=== PATIENT | female | born 1955 | race Caucasian/White ===

== ENCOUNTER 2017-10-06 19:27 | Observation (INO) | payer OTHER, BC ==
[2017-10-07] MEDS ORDERED: ZOFRAN INJ 4 MG VIAL IVP ONE (00:27)
--- NOTE | 2017-10-07 00:27 | DR.GENAD ---
HPI - PCP Primary Care Physician: NFD - Complaint/Symptoms Chief Complaint Doctors Comments: Patient is complaining of nausea, vomiting and diarrhea for the past 24hours with blood in her bowel movement with LLQ pain. brandi states the pain is 7 of 10. She denies chest pain , SOB, cold or cough or hematuria. states she is a patient of Dr. Newman. states she had a colonoscope last year and they told her she had a diverticulum. States she has been seeing blood in her stool everything she goes to the bathroom. She denies any recent trauma. Chief Complaint:: PT HAS BEEN N/V/D FOR APPROX 18HRS.; BLEEDING FROM RECTUM; BRIGHT RED BLOOD IN TOILET; UNSURE OF FEVER - Nurses notes reviewed Nurses Notes Review: Yes - Source History Provided: Patient - Mode of Arrival Mode of Arrival: Ambulatory - Timing Onset of Chief Complaint: 10/05/17 Came on: Gradually - Duration Duration: Constant How lon Duration: Days - Location Location: LLQ pain - Severity Severity: Moderate - Modifying Factors Worsens:: nothing Improves:: nothing PMH - PMH Past Medical History: Yes Past Medical History: Arthritis, Hypertension Past Medical History Comment: DDD; OSTEOARTHRITIS; HEART MURMUR Past Surgical History: Yes Past Surgical History Comment: TUBILIGATION; SPACERS PLACED IN C-SPINE; BILATERAL KNEE REPLACEMENT - Family History History of Family Medical Conditions: No - Social History Alcohol Use: None Do you use any recreational Drugs:: No Lives With: Family Lives Where: Home - infectious screening In the last 2 months have you had wt loss of >10#?: NO Have you had fever, night sweats or hemotysis?: No Have you traveled outside the country in the last 6 months?: No Isolation: Standard ROS - Review of Systems Constitutional: No Symptoms Reported, Weakness, Loss of Appetite. negative: See HPI, Chills, Diaphoresis, Fever, Malaise, Irritable, Fatigue, Other Eyes: No Symptoms Reported. negative: See HPI, Eye Pain, Blurred Vision, Tearing, Discharge, Photophobia, Diplopia, Other ENTM: No Symptoms Reported Respiratoy: No Symptoms Reported. negative: See HPI, Productive Cough, Non- Productive Cough, Moist Cough, Dry Cough, Hacking Cough, Barking Cough, Brassy Cough, Orthopnea, Short of Breath, Stridor, Wheezing, Hemoptysis, Other Cardiovascular: No Symptoms Reported Gastrointestinal/Abdominal: No Symptoms Reported, Abdominal Pain, Diarrhea, Nausea Genitourinary: No Symptoms Reported. negative: See HPI, Discharge, Dysuria, Frequency, Hematuria, Pain, Bleeding, Other Neurological: No Symptoms Reported Musculoskeletal: No Symptoms Reported Integumentary: No Symptoms Reported. negative: See HPI, Change in Color, Change in Hair/Nails, Dryness, Lesions, Lumps, Rash, Itching, Wound, Bruises, Juandice, Other Hematologic/Lymphatic: No Symptoms Reported. negative: See HPI, Anemia, Blood Clots, Easy Bleeding, Easy Bruising, Swollen Glands, Lymphadenopathy, Other Endocrine: No Symptoms Reported Psychiatric: No Symptoms Reported. negative: See HPI, Anxiety, Depression, Hallucinations, Excessive crying, Suicidal, Other PE - Vital Signs Vitals: Temperature 98.9 F Pulse Rate [Right Brachial] 93 Pulse Rate 89 Respiratory Rate 20 Blood Pressure [Right Arm] 129/68 Blood Pressure 146/70 O2 Sat by Pulse Oximetry 99 - General Limitations: No Limitations General Appearance: Alert, In Distress (moderate) - Head Head Exam: Normal Inspection, Atraumatic, Normocephalic - Eyes Eye exam: Normal Appearance, PERRL, EOMI. negative: Scleral Icterus, Conjunctival Injection, Nystagmus, Miosis, Mydrasis, Periorbital Swelling, Periorbital Tenderness, Other - ENT ENT Exam: Normal Exam, Normal Oropharynx, Normal External Ear Exam, Mucous Membranes Moist, TM's Normal Bilaterally External Ear Exam: Normal External Inspection TM/Canal Exam: Bilateral Normal Nose Exam: Normal Nose Exam Mouth Exam: Normal Inspection Throat Exam: Normal Inspection - Neck Neck Exam: Normal Inspection, Full ROM, Trachea Midline. negative: Tenderness, Meningismus, Lymphadenopathy, Thyromegaly, Other - Chest Chest Inspection: Normal Inspection, Symmetric Chest Wall Rise - Respiratory Respiratory Exam: Normal Lung Sounds Bilat Respiratory Exam: Bilateral Clear to Auscultation - Cardiovascular Cardiovascular Exam: Regular Rate, Normal Rhythm, Normal Heart Sounds. negative : Bradycardia, Tachycardia, Irregular Rhythm, Systolic Murmur, Diastolic Murmur , Rubs, Gallop, Clicks, JVD, +S1, +S2, +S3, +S4, Other - Abdominal Exam Abdominal Exam: Normal Inspection, Normal Bowel Sounds, Soft, Tenderness (LLQ tenderness), Hyperactive Bowel Sounds Abdominal Tenderness: LLQ, Diffuse, Moderate - Extremities Extremities Exam: Normal Inspection, Full ROM, Normal Capillary Refill. negative: Tenderness, Edema, Joint Swelling, Calf Tenderness, Other - Back Back Exam: Normal Inspection, Full ROM. negative: Tenderness, (R) CVA Tenderness, (L) CVA Tenderness, Muscle Spasm, Paraspinal Tenderness, Vertebral Tenderness, Rashes, (R) Sciatic Notch Tenderness, (L) Sciatic Notch Tendern, (R ) Straight Leg Raise, (L) Straight Leg Raise, Other - Neurologic Neurological Exam: Alert, Oriented X3, CN II-XII Intact, Normal Gait, Reflexes Normal - Psychiatric Psychiatric Exam: Normal Affect, Normal Mood - Skin Skin Exam: Warm, Dry, Intact, Normal Color Course - Consultation Called: 02:25 Call Returned: 02:36 (Dr. Petty called to admit patient) - Education/Counseling Education/Counseling: Patient, Family Educated On: Treatment, Diagnosis, Needs for Follow Up ROR - Labs Reviewed Laboratory Results Reviewed?: Yes (All labs and x-ray results reviewed and discussed with patient and her son) Result Diagrams: 10/07/17 00:40 10/07/17 00:40 Laboratory: WBC 14.2 X10^3/uL (3.6-10.0) H 10/07/17 00:40 RBC 4.59 X10^6/uL (3.5-5.4) 10/07/17 00:40 Hgb 14.1 g/dL (12.0-16.0) 10/07/17 00:40 Hct 40.6 % (36.0-47.0) 10/07/17 00:40 MCV 88.4 fL (80.0-100.0) 10/07/17 00:40 MCH 30.7 pg (27.0-34.0) 10/07/17 00:40 MCHC 34.8 g/dL (33.0-35.0) 10/07/17 00:40 RDW 13.5 % (11.6-16.5) 10/07/17 00:40 Plt Count 175 X10^3/uL (150.0-450.0) 10/07/17 00:40 MPV 8.9 fL (7.4-11.0) 10/07/17 00:40 Neut % 74.2 % (42.0-75.0) 10/07/17 00:40 Lymph % 16.0 % (21.0-51.0) L 10/07/17 00:40 [place] % 8.1 % (0.0-13.0) 10/07/17 00:40 Eos % 1.0 % (0.9-2.9) 10/07/17 00:40 Baso % 0.7 % (0.2-1.0) 10/07/17 00:40 Neut # 10.5 x10^3/uL (2.2-4.8) H 10/07/17 00:40 Lymph # 2.3 X10^3/uL (1.3-2.9) 10/07/17 00:40 [place] # 1.2 x10^3/uL (0.3-0.8) H 10/07/17 00:40 Eos # 0.1 x10^3/uL (0.0-0.2) 10/07/17 00:40 Baso # 0.1 X10^3/uL (0.0-0.1) 10/07/17 00:40 Absolute Nucleated RBC 0.2 /100WBC 10/07/17 00:40 Sodium 142 mmol/L (136-145) 10/07/17 00:40 Corrected Sodium TNP 10/07/17 00:40 Potassium 4.0 mmol/L (3.5-5.1) 10/07/17 00:40 Chloride 102 mmol/L (98-107) 10/07/17 00:40 Carbon Dioxide 30.6 mmol/L (21-32) 10/07/17 00:40 BUN 16 mg/dL (7-18) 10/07/17 00:40 Creatinine 0.69 mg/dL (0.55-1.02) 10/07/17 00:40 Est GFR (MDRD) Af Amer > 60 (>60) 10/07/17 00:40 Est GFR (MDRD) Non-Af > 60 (>60) 10/07/17 00:40 Glucose 104 mg/dL (65-99) H 10/07/17 00:40 Calcium 8.8 mg/dL (8.5-10.1) 10/07/17 00:40 Corrected Calcium TNP 10/07/17 00:40 Total Bilirubin 0.70 mg/dL (0.2-1.0) 10/07/17 00:40 AST 23 Units/L (15-37) 10/07/17 00:40 ALT 31 Units/L (12-78) 10/07/17 00:40 Alkaline Phosphatase 70 Units/L (46-116) 10/07/17 00:40 Total Protein 7.4 g/dL (6.4-8.2) 10/07/17 00:40 Albumin 3.6 g/dL (3.4-5.0) 10/07/17 00:40 Globulin 3.8 g/dL (2.5-4.5) 10/07/17 00:40 Albumin/Globulin Ratio 0.9 Ratio (1.1-2.1) L 10/07/17 00:40 Amylase 25 Units/L (25-115) 10/07/17 00:40 Lipase 77 Units/L (73-393) 10/07/17 00:40 Stool Description 5g. bloody/liquid 10/06/17 23:07 Stl Occult Blood (IFOB) Positive (NEGATIVE) A 10/06/17 23:07 - XRAY XRAY Interpreted by: Radiologist (CT abdomen and pelvis: scute inflammatory change in the left colon and the splenic flexure compatible with colitis. Gallstones.) - Diagnosis Discharge Problem: Acute GI bleeding, Acute colitis, Gastroenteritis, Colonic diverticulum, Abdominal pain Cholelithiasis Qualifiers: Cholangitis acuity: unspecified acuity Biliary obstruction: without biliary obstruction - Discharge Plan Disposition: ADMITTED INPATIENT Condition: Stable - Follow ups/Referrals Follow ups/Referrals: NFD,None [Primary Care Provider] - 3 days - Instructions
[2017-10-07] MEDS ORDERED: TORADOL 30 MG VIAL IVP STA (00:33)
[2017-10-07] MEDS ORDERED: ZOFRAN INJ 4 MG VIAL ONE (00:33)
[2017-10-07] MEDS: NS 1000 ML 1,000 ML IV SCH ×2 (00:47→17:33)
[2017-10-07] MEDS ORDERED: TORADOL 30 MG VIAL ONE (00:48)
[2017-10-07] MEDS ORDERED: NS 1000 ML 1,000 ML ONE (00:48)
[2017-10-07 00:58] LABS: BASOPHILS # (AUTO) 0.1 X10^3/uL (0.0-0.1); BASOPHILS % (AUTO) 0.7 % (0.2-1.0); EOSINOPHILS # (AUTO) 0.1 x10^3/uL (0.0-0.2); HEMATOCRIT 40.6 % (36.0-47.0); HEMOGLOBIN 14.1 g/dL (12.0-16.0); LYMPHOCYTES # (AUTO) 2.3 X10^3/uL (1.3-2.9); MEAN CORPUSCULAR HEMOGLOBIN 30.7 pg (27.0-34.0); MEAN CORPUSCULAR HGB CONC 34.8 g/dL (33.0-35.0); MEAN CORPUSCULAR VOLUME 88.4 fL (80.0-100.0); MEAN PLATELET VOLUME 8.9 fL (7.4-11.0); MONOCYTES # (AUTO) 1.2 x10^3/uL (0.3-0.8); MONOCYTES % (AUTO) 8.1 % (0.0-13.0); NEUTROPHILS # (AUTO) 10.5 x10^3/uL (2.2-4.8); NEUTROPHILS % (AUTO) 74.2 % (42.0-75.0); PLATELET COUNT 175 X10^3/uL (150.0-450.0); RED BLOOD COUNT 4.59 X10^6/uL (3.5-5.4); RED CELL DISTRIBUTION WIDTH 13.5 % (11.6-16.5); WHITE BLOOD COUNT 14.2 X10^3/uL (3.6-10.0)
[2017-10-07 01:22] LABS: ALANINE AMINOTRANSFERASE 31 Units/L (12-78); ALBUMIN 3.6 g/dL (3.4-5.0); ALKALINE PHOSPHATASE 70 Units/L (46-116); AMYLASE 25 Units/L (25-115); ASPARTATE AMINO TRANSFERASE 23 Units/L (15-37); BLOOD UREA NITROGEN 16 mg/dL (7-18); CALCIUM 8.8 mg/dL (8.5-10.1); CARBON DIOXIDE 30.6 mmol/L (21-32); CHLORIDE 102 mmol/L (98-107); CREATININE 0.69 mg/dL (0.55-1.02); LIPASE 77 Units/L (73-393); SODIUM 142 mmol/L (136-145); TOTAL PROTEIN 7.4 g/dL (6.4-8.2); eGFR BLACK RACES > 60 (>60); eGFR NON BLACK RACES > 60 (>60)
[2017-10-07] MEDS ORDERED: LEVAQUIN PREMIX IV 500 MG 500 MG/100 ML BAG IV ONE ×2 (01:42→01:49)
--- NOTE | 2017-10-07 01:42 | CT ---
CT abdomen and pelvis without contrast Indication: Rectal bleeding and vomiting Technique: Helical images through the abdomen pelvis without contrast. Coronal and sagittal reformats provided. Findings: Limited images through the lower chest show no acute abnormality. Review of bone windows sh ows no destructive osseous lesion. Abdomen: The liver is fatty. Gallstones are seen within the gallbladder. The pancreas, adrenal glands , kidneys and spleen show no acute abnormality. The stomach and small bowel are normal. Appendix is n ormal. Right colon is normal. There is wall thickening and stranding around the splenic flexure, left transverse colon and descending colon see axial images 23-40. Few noninflamed distal descending colo n diverticulum noted. Pelvis: The urinary bladder and rectum are normal. Uterus and adnexa are normal Pressure: 1. Acute inflammatory change in the left colon at the splenic flexure as described above. This is com patible with colitis. Etiology could be inflammatory or infectious. Ischemia cannot be completely exc luded. Close clinical and imaging follow-up recommended. Surgical consultation recommended. 2. Gallstones, and other findings as above. THE AVAILABILITY OF THE REPORT AND FINDINGS WERE COMMUNICATED TO Dr. Vargas by Dr. Turpin on 10/07/2017 Time called 1:42 a.m. Reported By:
[2017-10-07] MEDS ORDERED: PHENERGAN INJ 25 MG IVP PRN (02:42)
[2017-10-07] MEDS ORDERED: PEPCID 20 MG IV PREMIX* 20 MG/50 ML BAG IV PRN (02:42)
[2017-10-07] MEDS ORDERED: MORPHINE SULFATE INJ 2 MG INJ IVP PRN (02:42)
[2017-10-07] MEDS ORDERED: ZOFRAN INJ 4 MG VIAL IVP PRN (02:42)
[2017-10-07 04:50] VITALS: BMI 27.8
[2017-10-07] MEDS: LEVAQUIN PREMIX IV 500 MG 500 MG/100 ML BAG IV SCH ×2 (05:17→10:23)
[2017-10-07] MEDS: NS 1/2 + KCL 20 MEQ/L 1,000 ML IV SCH ×2 (05:17→17:34)
[2017-10-07] MEDS: FLAGYL IV PREMIX 500 MG BAG 500 MG/100 ML BAG IV SCH ×4 (05:24→20:48)
[2017-10-07 08:28] LABS: BASOPHILS # (AUTO) 0.1 X10^3/uL (0.0-0.1); BASOPHILS % (AUTO) 0.9 % (0.2-1.0); EOSINOPHILS # (AUTO) 0.2 x10^3/uL (0.0-0.2); EOSINOPHILS % (AUTO) 1.8 % (0.9-2.9); HEMATOCRIT 38.2 % (36.0-47.0); HEMOGLOBIN 13.2 g/dL (12.0-16.0); LYMPHOCYTES # (AUTO) 2.6 X10^3/uL (1.3-2.9); LYMPHOCYTES % (AUTO) 21.6 % (21.0-51.0); MEAN CORPUSCULAR HEMOGLOBIN 30.6 pg (27.0-34.0); MEAN CORPUSCULAR HGB CONC 34.6 g/dL (33.0-35.0); MEAN CORPUSCULAR VOLUME 88.4 fL (80.0-100.0); MEAN PLATELET VOLUME 9.1 fL (7.4-11.0); MONOCYTES # (AUTO) 1.1 x10^3/uL (0.3-0.8); MONOCYTES % (AUTO) 9.5 % (0.0-13.0); NEUTROPHILS # (AUTO) 7.9 x10^3/uL (2.2-4.8); NEUTROPHILS % (AUTO) 66.2 % (42.0-75.0); PLATELET COUNT 157 X10^3/uL (150.0-450.0); RED BLOOD COUNT 4.32 X10^6/uL (3.5-5.4); RED CELL DISTRIBUTION WIDTH 13.7 % (11.6-16.5); WHITE BLOOD COUNT 11.9 X10^3/uL (3.6-10.0)
[2017-10-07 08:34] LABS: ALANINE AMINOTRANSFERASE 27 Units/L (12-78); ALKALINE PHOSPHATASE 63 Units/L (46-116); ASPARTATE AMINO TRANSFERASE 20 Units/L (15-37); BLOOD UREA NITROGEN 16 mg/dL (7-18); CALCIUM 8.6 mg/dL (8.5-10.1); CARBON DIOXIDE 30.3 mmol/L (21-32); CHLORIDE 103 mmol/L (98-107); COR CA(FOR HYPOALB) 9.4 mg/dL (8.5-10.1); CREATININE 0.69 mg/dL (0.55-1.02); SODIUM 142 mmol/L (136-145); TOTAL PROTEIN 6.8 g/dL (6.4-8.2); eGFR BLACK RACES > 60 (>60); eGFR NON BLACK RACES > 60 (>60)
--- NOTE | 2017-10-07 09:39 | DR.H&P ---
H&P - History & Physical for Day of: H&P Date: 10/07/17 - Chief Complaint Chief Complaint: abdominal pain, n/v/d, blood in stool - Allergies Allergies/Adverse Reactions: Allergies Allergy/AdvReac Type Severity Reaction Status Date / Time penicillin G Allergy Verified 10/06/17 19:57 Penicillins Allergy Verified 10/06/17 19:57 - History of Present Illness History of Present Illness: 62 WHITE FEMALE ER ADMIT WITH CO OF ABDOMINAL PAIN, LOWER WITH CRAMPS. PT STATES SHE HAS HAD N/V/D AND STARTING ON SUNDAY WITH BLOOD IN STOOL. PT STATES SHE HAS HAD NO FEVER, SOME CHILLS. NAUSEA IMPROVING. PT HAD SCREENING COLONOSCOPY 1 YEAR AGO WITHOUT ABNORMAL FINDINGS. PT HAS PMH OF RA, CURRENTLY ON METHOTREXATE. PT ADMITTED FOR TREATMENT AND FUTHER EVALUATION OF COLITIS - Past Medical History Past Medical History: Arthritis, Hypertension - Past Surgical History Surgical History: Joint Replacement, Neurosurgery, Ortho Surgery, Other - Family History Family Medical History: Cancer, [place], Coronary Artery Disease, Heart Failure, Hypertension - Social History Does patient currently use any type of tobacco product: No Have you used tobacco products in the last 12 months: No Type of Tobacco Use: Cigarettes Does any household member use tobacco: No Alcohol Use: None Drug Use: None - Medications Home Medications: Cyclobenzaprine HCl [FLEXERIL 10 MG *] 10 mg PO TID 10/07/17 [History Confirmed 10/07/17] Hydroxychloroquine Sulfate [Plaquenil] 400 mg PO DAILY 10/07/17 [History Confirmed 10/07/17] Methotrexate Sodium [Methotrexate] 0.8 ml IM WEEKLY 10/07/17 [History Confirmed 10/07/17] Nabumetone 750 mg PO BID 10/07/17 [History Confirmed 10/07/17] Propranolol HCl [Inderal LA] 60 mg PO BID 10/07/17 [History Confirmed 10/07/17] Trazodone HCl [TRAZODONE 50 MG (DESYREL) *] 50 mg PO DAILY 10/07/17 [History Confirmed 10/07/17] - Review of Systems Constitutional: Chills, Weakness Eyes: No Symptoms Reported ENT: No Symptoms Reported Respiratory: No Symptoms Reported Cardiovascular: No Symptoms Reported Gastrointestinal: Nausea, Vomiting, Abdominal Pain, Diarrhea, Constipation, Melena Musculoskeletal: Back Pain, Leg Pain Skin: No Symptoms Reported Neurological: No Symptoms Reported - Physical Exam Vital Signs: Temperature 98.1 F Pulse Rate [Right Brachial] 82 Pulse Rate 89 Respiratory Rate 13 Blood Pressure [Left Arm] 132/63 Blood Pressure [Right Arm] 113/61 Blood Pressure 146/70 O2 Sat by Pulse Oximetry 92 Oriented: Normal Eyes: Normal Ear: Normal, Left Throat: Normal Respiratory: Clear Throughout Cardiovascular: Murmur : Normal Auscultation: Bowel Sounds: Normal Palpation: Normal Tenderness: RLQ, LUQ, Epigastric Skin: Normal Musculoskeletal: Right, Left, Knee, Back:Lumbar Psychiatric: Anxiety Affect: Anxious Speech Pattern: Clear, Appropriate - Assessment/Plan (1) Acute colitis Status: Acute Plan: IV HYDRATION, IV ATBX. PPI, CLEAR LIQUIDS. PAIN CONTROL, MONITORING H & H. CONFIRM HOME MEDS (2) Rheumatoid arthritis Status: Acute Plan: HOLD RA MEDS, NO NSAIDS (3) Acute GI bleeding Status: Acute (4) Cholelithiasis Qualifiers: Cholangitis acuity: unspecified acuity Biliary obstruction: without biliary obstruction Status: Acute
[2017-10-07] MEDS ORDERED: PEPCID TAB 20 MG PO PRN (10:05)
[2017-10-07] MEDS: NORCO 10/325 TAB PO PRN ×2 (10:22→16:00)
[2017-10-07] MEDS: DESYREL PO SCH (10:23)
[2017-10-07] MEDS: PROPRANOLOL HCL 60 MG PO SCH ×2 (10:23→20:48)
[2017-10-07 11:02] LABS: STOOL FOR WBC POSITIVE (NEGATIVE)
[2017-10-08 00:49] LABS: BILIRUBIN,URINE NEGATIVE (NEGATIVE); BLOOD/HEMOGLOBIN,URINE NEGATIVE (NEGATIVE); GLUCOSE, URINE NEGATIVE (NEGATIVE); KETONES,URINE 2+ (NEGATIVE); LEUKOCYTE ESTERASE ,URINE 1+ (NEGATIVE); NITRITES,URINE NEGATIVE (NEGATIVE); PROTEIN,URINE NEGATIVE (NEGATIVE); UROBILINOGEN,URINE NORMAL (NORMAL)
[2017-10-08 00:56] LABS: APPEARANCE,URINE CLEAR (CLEAR); BACTERIA,URINE NEGATIVE /HPF (NEGATIVE); COLOR,URINE YELLOW (YELLOW); RBC,URINE NONE SEEN /HPF (NONE SEEN); SQUAMOUS EPITHELIAL CELL,UR RARE /HPF (NEGATIVE)
[2017-10-08] MEDS: NS 1/2 + KCL 20 MEQ/L 1,000 ML IV SCH ×3 (01:00→18:30)
[2017-10-08] MEDS: NORCO 10/325 TAB PO PRN ×2 (01:00→08:23)
[2017-10-08] MEDS: FLAGYL IV PREMIX 500 MG BAG 500 MG/100 ML BAG IV SCH ×4 (03:40→20:59)
[2017-10-08 06:17] LABS: BASOPHILS # (AUTO) 0.1 X10^3/uL (0.0-0.1); BASOPHILS % (AUTO) 0.6 % (0.2-1.0); EOSINOPHILS # (AUTO) 0.3 x10^3/uL (0.0-0.2); EOSINOPHILS % (AUTO) 2.8 % (0.9-2.9); HEMATOCRIT 40.2 % (36.0-47.0); LYMPHOCYTES # (AUTO) 2.1 X10^3/uL (1.3-2.9); LYMPHOCYTES % (AUTO) 18.9 % (21.0-51.0); MEAN CORPUSCULAR HEMOGLOBIN 31.2 pg (27.0-34.0); MEAN CORPUSCULAR HGB CONC 34.8 g/dL (33.0-35.0); MEAN CORPUSCULAR VOLUME 89.7 fL (80.0-100.0); MEAN PLATELET VOLUME 8.9 fL (7.4-11.0); MONOCYTES # (AUTO) 1.1 x10^3/uL (0.3-0.8); MONOCYTES % (AUTO) 10.1 % (0.0-13.0); NEUTROPHILS # (AUTO) 7.4 x10^3/uL (2.2-4.8); NEUTROPHILS % (AUTO) 67.6 % (42.0-75.0); PLATELET COUNT 174 X10^3/uL (150.0-450.0); RED BLOOD COUNT 4.49 X10^6/uL (3.5-5.4); RED CELL DISTRIBUTION WIDTH 13.9 % (11.6-16.5); WHITE BLOOD COUNT 10.9 X10^3/uL (3.6-10.0)
[2017-10-08 07:07] LABS: ALANINE AMINOTRANSFERASE 26 Units/L (12-78); ALBUMIN 3.2 g/dL (3.4-5.0); ALKALINE PHOSPHATASE 64 Units/L (46-116); ASPARTATE AMINO TRANSFERASE 21 Units/L (15-37); BLOOD UREA NITROGEN 11 mg/dL (7-18); CALCIUM 8.6 mg/dL (8.5-10.1); CARBON DIOXIDE 28.1 mmol/L (21-32); CHLORIDE 101 mmol/L (98-107); COR CA(FOR HYPOALB) 9.2 mg/dL (8.5-10.1); CREATININE 0.81 mg/dL (0.55-1.02); SODIUM 139 mmol/L (136-145); TOTAL PROTEIN 7.3 g/dL (6.4-8.2); eGFR BLACK RACES > 60 (>60); eGFR NON BLACK RACES > 60 (>60)
[2017-10-08] MEDS: DESYREL PO SCH (09:33)
[2017-10-08] MEDS: FLEXERIL TAB 10 MG PO SCH ×3 (09:33→20:59)
[2017-10-08] MEDS: LEVAQUIN PREMIX IV 500 MG 500 MG/100 ML BAG IV SCH (09:35)
[2017-10-08] MEDS: PROPRANOLOL HCL 60 MG PO SCH ×2 (09:37→21:07)
--- NOTE | 2017-10-08 18:23 | PCM.PROG ---
Progress Note - Progress Note for Day of Date: 10/08/17 - Subjective Subjective: PT STATES IMPROVED NAUSEA, IMPROVED LOOSE BM'S. PLAN TO ADVANCE DIET, CONTINUE IV ATBX. REPEAT CT/ABD PELVIS - Past Medical Family Social History Past Med/Fam/Surg Hx: No changes since H&P Allergies: Allergies penicillin G Allergy (Verified 10/06/17 19:57) Penicillins Allergy (Verified 10/06/17 19:57) - Review of Systems ROS: No change since H&P - Vital Signs and I&O's Vital Signs: Temperature 98.5 F Pulse Rate [Right Brachial] 84 Pulse Rate 89 Respiratory Rate 18 Blood Pressure [Left Arm] 132/63 Blood Pressure [Right Arm] 117/57 Blood Pressure 146/70 O2 Sat by Pulse Oximetry 92 Intake and Output: Intake & Output 10/06/17 10/07/17 10/08/17 10/09/17 11:59 11:59 11:59 11:59 Intake Total 2086 1210 Output Total 1700 Balance 386 1210 - Physical Exam Oriented: Normal Eyes: Normal Ear: Normal, Left Throat: Normal Respiratory: Normal Cardiovascular: Murmur : Normal Auscultation: Bowel Sounds: Normal Tenderness: Epigastric Skin: Normal Musculoskeletal: Right, Left, Knee, Back:Lumbar Psychiatric: Anxiety Affect: Anxious Speech Pattern: Clear, Appropriate - Laboratory and Diagnostics Result Diagrams: 10/08/17 05:30 10/08/17 05:30 Labs: 10/07/17 09:50 Stool Stool Culture - Preliminary 10/07/17 09:50 Stool - Final Laboratory WBC 10.9 X10^3/uL (3.6-10.0) H 10/08/17 05:30 RBC 4.49 X10^6/uL (3.5-5.4) 10/08/17 05:30 Hgb 14.0 g/dL (12.0-16.0) 10/08/17 05:30 Hct 40.2 % (36.0-47.0) 10/08/17 05:30 MCV 89.7 fL (80.0-100.0) 10/08/17 05:30 MCH 31.2 pg (27.0-34.0) 10/08/17 05:30 MCHC 34.8 g/dL (33.0-35.0) 10/08/17 05:30 RDW 13.9 % (11.6-16.5) 10/08/17 05:30 Plt Count 174 X10^3/uL (150.0-450.0) 10/08/17 05:30 MPV 8.9 fL (7.4-11.0) 10/08/17 05:30 Neut % 67.6 % (42.0-75.0) 10/08/17 05:30 Lymph % 18.9 % (21.0-51.0) L 10/08/17 05:30 [place] % 10.1 % (0.0-13.0) 10/08/17 05:30 Eos % 2.8 % (0.9-2.9) 10/08/17 05:30 Baso % 0.6 % (0.2-1.0) 10/08/17 05:30 Neut # 7.4 x10^3/uL (2.2-4.8) H 10/08/17 05:30 Lymph # 2.1 X10^3/uL (1.3-2.9) 10/08/17 05:30 [place] # 1.1 x10^3/uL (0.3-0.8) H 10/08/17 05:30 Eos # 0.3 x10^3/uL (0.0-0.2) H 10/08/17 05:30 Baso # 0.1 X10^3/uL (0.0-0.1) 10/08/17 05:30 Absolute Nucleated RBC 0.0 /100WBC 10/08/17 05:30 Sodium 139 mmol/L (136-145) 10/08/17 05:30 Corrected Sodium TNP 10/08/17 05:30 Potassium 3.7 mmol/L (3.5-5.1) 10/08/17 05:30 Chloride 101 mmol/L (98-107) 10/08/17 05:30 Carbon Dioxide 28.1 mmol/L (21-32) 10/08/17 05:30 BUN 11 mg/dL (7-18) 10/08/17 05:30 Creatinine 0.81 mg/dL (0.55-1.02) 10/08/17 05:30 Est GFR (MDRD) Af Amer > 60 (>60) 10/08/17 05:30 Est GFR (MDRD) Non-Af > 60 (>60) 10/08/17 05:30 Glucose 92 mg/dL (65-99) 10/08/17 05:30 Calcium 8.6 mg/dL (8.5-10.1) 10/08/17 05:30 Corrected Calcium 9.2 mg/dL (8.5-10.1) 10/08/17 05:30 Total Bilirubin 0.50 mg/dL (0.2-1.0) 10/08/17 05:30 AST 21 Units/L (15-37) 10/08/17 05:30 ALT 26 Units/L (12-78) 10/08/17 05:30 Alkaline Phosphatase 64 Units/L (46-116) 10/08/17 05:30 Total Protein 7.3 g/dL (6.4-8.2) 10/08/17 05:30 Albumin 3.2 g/dL (3.4-5.0) L 10/08/17 05:30 Globulin 4.1 g/dL (2.5-4.5) 10/08/17 05:30 Albumin/Globulin Ratio 0.8 Ratio (1.1-2.1) L 10/08/17 05:30 Amylase 25 Units/L (25-115) 10/07/17 00:40 Lipase 77 Units/L (73-393) 10/07/17 00:40 Specimen Type Clean catch urine 10/08/17 00:06 Urine Color Yellow (YELLOW) 10/08/17 00:06 Urine Appearance Clear (CLEAR) 10/08/17 00:06 Urine pH 5.0 (5.0 - 8.0) 10/08/17 00:06 Ur Specific [place] 1.015 (1.000-1.030) 10/08/17 00:06 Urine Protein Negative (NEGATIVE) 10/08/17 00:06 Urine Glucose (UA) Negative (NEGATIVE) 10/08/17 00:06 Urine Ketones 2+ (NEGATIVE) 10/08/17 00:06 Urine Occult Blood Negative (NEGATIVE) 10/08/17 00:06 Urine Nitrite Negative (NEGATIVE) 10/08/17 00:06 Urine Bilirubin Negative (NEGATIVE) 10/08/17 00:06 Urine Urobilinogen Normal (NORMAL) 10/08/17 00:06 Ur Leukocyte Esterase 1+ (NEGATIVE) 10/08/17 00:06 Urine RBC None seen /HPF (NONE SEEN) 10/08/17 00:06 Urine WBC 0-1 /HPF (NONE SEEN) 10/08/17 00:06 Ur Squamous Epith Cells Rare /HPF (NEGATIVE) 10/08/17 00:06 Urine Bacteria Negative /HPF (NEGATIVE) 10/08/17 00:06 Ur Culture Indicated? No/not indicated 10/08/17 00:06 Stool Description 8g,red,liquid 10/07/17 09:50 Stl Occult Blood (IFOB) Positive (NEGATIVE) A 10/07/17 09:50 Stool for White Cells Positive (NEGATIVE) A 10/07/17 09:50 Stl C. diff Tox B Gene Negative (NEGATIVE) 10/07/17 09:50 Stl C. diff [id number]-NAP1-BI Negative (NEGATIVE) 10/07/17 09:50 - Plan (1) Acute colitis Status: Acute Plan: IV HYDRATION, IV ATBX. PPI, ADVANCE DIET, REPEAT CT ABD/PELVIS Q AM. PAIN CONTROL, MONITORING H & H. CONFIRM HOME MEDS (2) Rheumatoid arthritis Status: Acute Plan: HOLD RA MEDS, NO NSAIDS (3) Acute GI bleeding Status: Acute (4) Cholelithiasis Status: Acute Qualifiers: Cholangitis acuity: unspecified acuity Biliary obstruction: without biliary obstruction
--- NOTE | 2017-10-08 20:52 | DR.PROGNOT ---
Hospital Progress Notes - Progress Note for Day of: Progress Note Date: 10/08/17 - Chief Complaint Chief Complaint: feeling better today , less LLQ pain , no rectal bleeding , no diarrhea . C- Diff was negative. - Past Medical Family Social History Past Med/Fam/Surg Hx: No changes since H&P Allergies: Allergies penicillin G Allergy (Verified 10/06/17 19:57) Penicillins Allergy (Verified 10/06/17 19:57) - Review Of Systems ROS: No change since H&P - Vital Signs Vital Signs: Temperature 98.5 F Pulse Rate [Right Brachial] 84 Pulse Rate 89 Respiratory Rate 18 Blood Pressure [Left Arm] 132/63 Blood Pressure [Right Arm] 117/57 Blood Pressure 146/70 O2 Sat by Pulse Oximetry 92 - Physical Exam Oriented: Normal Eyes: Normal Ear: Normal, Left Throat: Normal Respiratory: Normal Cardiovascular: Murmur : Normal GI:Auscultation: Normal GI:Palpation: Normal GI: Tenderness: LLQ (soft abdomen with moderate LLQ tenderness , no rebound , BS +) Skin: Normal Musculoskeletal: Right, Left, Knee, Back:Lumbar Psychiatric: Anxiety Affect: Anxious Speech Pattern: Clear, Appropriate - Laboratory and Diagnostics Result Diagrams: 10/08/17 05:30 10/08/17 05:30 Labs: 10/07/17 09:50 Stool Stool Culture - Preliminary 10/07/17 09:50 Stool - Final Laboratory WBC 10.9 X10^3/uL (3.6-10.0) H 10/08/17 05:30 RBC 4.49 X10^6/uL (3.5-5.4) 10/08/17 05:30 Hgb 14.0 g/dL (12.0-16.0) 10/08/17 05:30 Hct 40.2 % (36.0-47.0) 10/08/17 05:30 MCV 89.7 fL (80.0-100.0) 10/08/17 05:30 MCH 31.2 pg (27.0-34.0) 10/08/17 05:30 MCHC 34.8 g/dL (33.0-35.0) 10/08/17 05:30 RDW 13.9 % (11.6-16.5) 10/08/17 05:30 Plt Count 174 X10^3/uL (150.0-450.0) 10/08/17 05:30 MPV 8.9 fL (7.4-11.0) 10/08/17 05:30 Neut % 67.6 % (42.0-75.0) 10/08/17 05:30 Lymph % 18.9 % (21.0-51.0) L 10/08/17 05:30 [place] % 10.1 % (0.0-13.0) 10/08/17 05:30 Eos % 2.8 % (0.9-2.9) 10/08/17 05:30 Baso % 0.6 % (0.2-1.0) 10/08/17 05:30 Neut # 7.4 x10^3/uL (2.2-4.8) H 10/08/17 05:30 Lymph # 2.1 X10^3/uL (1.3-2.9) 10/08/17 05:30 [place] # 1.1 x10^3/uL (0.3-0.8) H 10/08/17 05:30 Eos # 0.3 x10^3/uL (0.0-0.2) H 10/08/17 05:30 Baso # 0.1 X10^3/uL (0.0-0.1) 10/08/17 05:30 Absolute Nucleated RBC 0.0 /100WBC 10/08/17 05:30 Sodium 139 mmol/L (136-145) 10/08/17 05:30 Corrected Sodium TNP 10/08/17 05:30 Potassium 3.7 mmol/L (3.5-5.1) 10/08/17 05:30 Chloride 101 mmol/L (98-107) 10/08/17 05:30 Carbon Dioxide 28.1 mmol/L (21-32) 10/08/17 05:30 BUN 11 mg/dL (7-18) 10/08/17 05:30 Creatinine 0.81 mg/dL (0.55-1.02) 10/08/17 05:30 Est GFR (MDRD) Af Amer > 60 (>60) 10/08/17 05:30 Est GFR (MDRD) Non-Af > 60 (>60) 10/08/17 05:30 Glucose 92 mg/dL (65-99) 10/08/17 05:30 Calcium 8.6 mg/dL (8.5-10.1) 10/08/17 05:30 Corrected Calcium 9.2 mg/dL (8.5-10.1) 10/08/17 05:30 Total Bilirubin 0.50 mg/dL (0.2-1.0) 10/08/17 05:30 AST 21 Units/L (15-37) 10/08/17 05:30 ALT 26 Units/L (12-78) 10/08/17 05:30 Alkaline Phosphatase 64 Units/L (46-116) 10/08/17 05:30 Total Protein 7.3 g/dL (6.4-8.2) 10/08/17 05:30 Albumin 3.2 g/dL (3.4-5.0) L 10/08/17 05:30 Globulin 4.1 g/dL (2.5-4.5) 10/08/17 05:30 Albumin/Globulin Ratio 0.8 Ratio (1.1-2.1) L 10/08/17 05:30 Amylase 25 Units/L (25-115) 10/07/17 00:40 Lipase 77 Units/L (73-393) 10/07/17 00:40 Specimen Type Clean catch urine 10/08/17 00:06 Urine Color Yellow (YELLOW) 10/08/17 00:06 Urine Appearance Clear (CLEAR) 10/08/17 00:06 Urine pH 5.0 (5.0 - 8.0) 10/08/17 00:06 Ur Specific [place] 1.015 (1.000-1.030) 10/08/17 00:06 Urine Protein Negative (NEGATIVE) 10/08/17 00:06 Urine Glucose (UA) Negative (NEGATIVE) 10/08/17 00:06 Urine Ketones 2+ (NEGATIVE) 10/08/17 00:06 Urine Occult Blood Negative (NEGATIVE) 10/08/17 00:06 Urine Nitrite Negative (NEGATIVE) 10/08/17 00:06 Urine Bilirubin Negative (NEGATIVE) 10/08/17 00:06 Urine Urobilinogen Normal (NORMAL) 10/08/17 00:06 Ur Leukocyte Esterase 1+ (NEGATIVE) 10/08/17 00:06 Urine RBC None seen /HPF (NONE SEEN) 10/08/17 00:06 Urine WBC 0-1 /HPF (NONE SEEN) 10/08/17 00:06 Ur Squamous Epith Cells Rare /HPF (NEGATIVE) 10/08/17 00:06 Urine Bacteria Negative /HPF (NEGATIVE) 10/08/17 00:06 Ur Culture Indicated? No/not indicated 10/08/17 00:06 Stool Description 8g,red,liquid 10/07/17 09:50 Stl Occult Blood (IFOB) Positive (NEGATIVE) A 10/07/17 09:50 Stool for White Cells Positive (NEGATIVE) A 10/07/17 09:50 Stl C. diff Tox B Gene Negative (NEGATIVE) 10/07/17 09:50 Stl C. diff [id number]-BI Negative (NEGATIVE) 10/07/17 09:50 - Assessment and Plan 1: abdominal pain . bloody diarrhea and gastro enteritis . same IVF , IV Flagyl. future GI Endoscopy. - Problem Patient Problems: Patient Problems Abdominal pain (Acute) R10.9 Acute GI bleeding (Acute) K92.2 Acute colitis (Acute) K52.9 Cholelithiasis (Acute) K80.20 Colonic diverticulum (Acute) K57.30 Gastroenteritis (Acute) K52.9 Rheumatoid arthritis (Acute) M06.9
[2017-10-08] MEDS: MILK OF MAGNESIA PO SCH (20:59)
[2017-10-08] MEDS ORDERED: COLACE CAP 100 MG PO SCH (21:00)
[2017-10-09] MEDS: FLAGYL IV PREMIX 500 MG BAG 500 MG/100 ML BAG IV SCH ×3 (03:26→15:10)
[2017-10-09 06:16] LABS: BASOPHILS % (AUTO) 0.6 % (0.2-1.0); EOSINOPHILS # (AUTO) 0.3 x10^3/uL (0.0-0.2); HEMATOCRIT 35.8 % (36.0-47.0); HEMOGLOBIN 12.4 g/dL (12.0-16.0); LYMPHOCYTES # (AUTO) 2.4 X10^3/uL (1.3-2.9); LYMPHOCYTES % (AUTO) 33.7 % (21.0-51.0); MEAN CORPUSCULAR HEMOGLOBIN 30.8 pg (27.0-34.0); MEAN CORPUSCULAR HGB CONC 34.6 g/dL (33.0-35.0); MEAN PLATELET VOLUME 8.9 fL (7.4-11.0); MONOCYTES # (AUTO) 1.1 x10^3/uL (0.3-0.8); MONOCYTES % (AUTO) 15.4 % (0.0-13.0); NEUTROPHILS # (AUTO) 3.3 x10^3/uL (2.2-4.8); NEUTROPHILS % (AUTO) 46.3 % (42.0-75.0); PLATELET COUNT 157 X10^3/uL (150.0-450.0); RED BLOOD COUNT 4.02 X10^6/uL (3.5-5.4); RED CELL DISTRIBUTION WIDTH 14.1 % (11.6-16.5); WHITE BLOOD COUNT 7.2 X10^3/uL (3.6-10.0)
[2017-10-09] MEDS: FLEXERIL TAB 10 MG PO SCH ×2 (06:26→15:10)
[2017-10-09 06:29] LABS: ALANINE AMINOTRANSFERASE 27 Units/L (12-78); ALBUMIN 2.9 g/dL (3.4-5.0); ALKALINE PHOSPHATASE 62 Units/L (46-116); ASPARTATE AMINO TRANSFERASE 23 Units/L (15-37); BLOOD UREA NITROGEN 9 mg/dL (7-18); CALCIUM 8.7 mg/dL (8.5-10.1); CARBON DIOXIDE 30.4 mmol/L (21-32); CHLORIDE 104 mmol/L (98-107); COR CA(FOR HYPOALB) 9.6 mg/dL (8.5-10.1); CREATININE 0.68 mg/dL (0.55-1.02); SODIUM 141 mmol/L (136-145); TOTAL PROTEIN 6.6 g/dL (6.4-8.2); eGFR BLACK RACES > 60 (>60); eGFR NON BLACK RACES > 60 (>60)
[2017-10-09] MEDS: NS 1/2 + KCL 20 MEQ/L 1,000 ML IV SCH (08:28)
[2017-10-09] MEDS: LEVAQUIN PREMIX IV 500 MG 500 MG/100 ML BAG IV SCH (09:43)
[2017-10-09] MEDS: DESYREL PO SCH ×2 (11:33)
[2017-10-09] MEDS: MILK OF MAGNESIA PO SCH (11:34)
[2017-10-09] MEDS: PROPRANOLOL HCL 60 MG PO SCH (11:34)
--- NOTE | 2017-10-09 12:24 | CT ---
CT ABDOMEN AND PELVIS WITH ORAL AND IV CONTRAST CLINICAL HISTORY: 62-year-old female with colitis. COMPARISON: CT abdomen and pelvis 10/07/2017. TECHNIQUE: Multiple contiguous axial images were obtained following the administration of 100 mL Omni paque intravenously and oral contrast. Images were reformatted in the coronal and sagittal planes. FINDINGS: The lung bases are clear without pulmonary nodules, masses, or pleural fluid collections. The inferi or imaged heart is normal in size and there is no pericardial effusion. Stable hepatomegaly with diffuse hepatic steatosis without focal mass lesion or biliary ductal dilata tion. Cholelithiasis is unchanged without CT evidence of cholecystitis. Spleen and pancreas are unrem arkable. Stable left adrenal nodule with a right adrenal unremarkable. The kidneys perfuse in a normal fashio n and the ureters run in an unobstructed course to a well distended urinary bladder. The uterus is anteverted and normal in size. The ovaries, perineum and vagina are within normal limi ts. Oral contrast reaches the hepatic flexure. Continued mild circumferential thickening edema of the spl enic flexure with surrounding inflammatory change, stable. No obstruction, free air or free fluid. Appendix is normal. There are no pathologically enlarged lym ph nodes in the abdomen or pelvis. The arteriovascular structures are within normal limits. Soft tissues are normal. The osseous structures are intact without fracture or malalignment. IMPRESSION: 1. Unchanged circumferential edema and thickening at the splenic flexure with surrounding mesenteric inflammation, no free air or focal fluid collection to suggest perforation or abscess. 2. Cholelithiasis without CT evidence of cholecystitis. 3. Heterogenous left adrenal nodule, consider MR adrenal protocol on a nonemergent outpatient basis f or definitive characterization. Reported By:
[2017-10-09 16:09] VITALS: BP 103/60
[2017-10-11 06:55] LABS: SODIUM STOOL 75
[2017-10-11 06:56] LABS: CHLORIDE STOOL 41; POTASSIUM STOOL 41
== END 2017-10-09 16:40 | disposition home or self-care (01) ==
LOC: ER 19:27 → ICU 10-07 03:26
PROVIDERS: ADMIT Internal Medicine; ATTEND Internal Medicine
DX: K52.89 Other specified noninfective gastroenteritis and colitis (principal); K92.1 Melena; K80.80 Other cholelithiasis without obstruction; R10.32 Left lower quadrant pain; R11.2 Nausea with vomiting, unspecified; R19.7 Diarrhea, unspecified; I10 Essential (primary) hypertension; M79.1 Myalgia; D72.828 Other elevated white blood cell count; K57.30 Diverticulosis of large intestine without perforation or abscess without bleeding; M06.80 Other specified rheumatoid arthritis, unspecified site; K21.9 Gastro-esophageal reflux disease without esophagitis; M19.90 Unspecified osteoarthritis, unspecified site; Z79.1 Long term (current) use of non-steroidal anti-inflammatories (NSAID); M62.81 Muscle weakness (generalized)
CPT/HCPCS: 36415; 74176; 74177; 80053; 81001; 82150; 82274; 82438; 82705; 83630; 83690; 84302; 84999; 85025; 87045; 87493; 87899; 96365; 96367; 96374; 96375; 99283; 99284; A4216; A4222; G8978; G8979; G8987; G8988; J7030; S0030; G0378; J1885; J1956; J2405

== ENCOUNTER → 2017-10-24 | Outpatient (CLI) | payer OTHER, BC ==
[2017-10-09 16:09] VITALS: BP 103/60
[2017-10-24 12:49] LABS: BASOPHILS # (AUTO) 0.1 X10^3/uL (0.0-0.1); EOSINOPHILS # (AUTO) 0.2 x10^3/uL (0.0-0.2); EOSINOPHILS % (AUTO) 2.5 % (0.9-2.9); HEMATOCRIT 43.9 % (36.0-47.0); LYMPHOCYTES # (AUTO) 1.6 X10^3/uL (1.3-2.9); LYMPHOCYTES % (AUTO) 23.3 % (21.0-51.0); MEAN CORPUSCULAR HEMOGLOBIN 30.4 pg (27.0-34.0); MEAN CORPUSCULAR HGB CONC 34.1 g/dL (33.0-35.0); MEAN CORPUSCULAR VOLUME 89.2 fL (80.0-100.0); MEAN PLATELET VOLUME 8.9 fL (7.4-11.0); MONOCYTES # (AUTO) 0.7 x10^3/uL (0.3-0.8); MONOCYTES % (AUTO) 9.5 % (0.0-13.0); NEUTROPHILS # (AUTO) 4.4 x10^3/uL (2.2-4.8); NEUTROPHILS % (AUTO) 63.7 % (42.0-75.0); PLATELET COUNT 191 X10^3/uL (150.0-450.0); RED BLOOD COUNT 4.92 X10^6/uL (3.5-5.4); RED CELL DISTRIBUTION WIDTH 13.8 % (11.6-16.5); WHITE BLOOD COUNT 6.9 X10^3/uL (3.6-10.0)
[2017-10-24 12:57] LABS: ALANINE AMINOTRANSFERASE 29 Units/L (12-78); ALBUMIN 3.9 g/dL (3.4-5.0); ALKALINE PHOSPHATASE 74 Units/L (46-116); ASPARTATE AMINO TRANSFERASE 22 Units/L (15-37); BLOOD UREA NITROGEN 15 mg/dL (7-18); CALCIUM 9.3 mg/dL (8.5-10.1); CARBON DIOXIDE 31.8 mmol/L (21-32); CHLORIDE 102 mmol/L (98-107); CREATININE 0.75 mg/dL (0.55-1.02); SODIUM 142 mmol/L (136-145); eGFR BLACK RACES > 60 (>60); eGFR NON BLACK RACES > 60 (>60)
== END ==
LOC: LAB 12:08
PROVIDERS: ATTEND Surgery
DX: R10.31 Right lower quadrant pain (principal); R10.32 Left lower quadrant pain; R79.89 Other specified abnormal findings of blood chemistry
CPT/HCPCS: 36415; 80053; 82378; 85025

== ENCOUNTER 2017-10-26 08:26 | Day surgery (SDC) | payer OTHER, BC ==
[2017-10-26] MEDS ORDERED: D5 LR 1000 ML 1,000 ML IV ONE (08:37)
[2017-10-26] MEDS ORDERED: DIPRIVAN VIAL 20 ML ONE (08:56)
[2017-10-26 09:45] VITALS: BP 111/55
== END 2017-10-26 09:45 | disposition home or self-care (01) ==
LOC: SURG1 08:26
PROVIDERS: ATTEND Surgery
PROC: 0DBN8ZX Excision of Sigmoid Colon, Via Natural or Artificial Opening Endoscopic, Diagnostic (ICD-10-PCS; principal; 2017-10-26 10:00)
PROC: 0DJD8ZZ Inspection of Lower Intestinal Tract, Via Natural or Artificial Opening Endoscopic (ICD-10-PCS; principal; 2017-10-26 10:00)
PROC: 0DBH8ZX Excision of Cecum, Via Natural or Artificial Opening Endoscopic, Diagnostic (ICD-10-PCS; principal; 2017-10-26 10:00)
PROC: 0DBL8ZX Excision of Transverse Colon, Via Natural or Artificial Opening Endoscopic, Diagnostic (ICD-10-PCS; principal; 2017-10-26 10:00)
DX: R10.84 Generalized abdominal pain (principal); K62.5 Hemorrhage of anus and rectum; K52.89 Other specified noninfective gastroenteritis and colitis
CPT/HCPCS: A4217; J3490; J7120

== ENCOUNTER → 2017-10-30 | Outpatient (CLI) | payer OTHER, BC ==
[2017-10-09 16:09] VITALS: BP 103/60
--- NOTE | 2017-10-30 12:05 | CT ---
Examination: CT of the abdomen and pelvis with contrast. Clinical History: Evaluate colitis, abdominal pain status post colonoscopy 3 days ago. Technique: Multiple axial images were obtained from the lung bases down to the pubic symphysis follow ing the intravenous administration of 100 ml of Omnipaque 350. Oral contrast was also administered. D ose reduction techniques including automated exposure control (AEC) and adjustment of mA and kV were utilized. Comparison: 10/09/2017. Findings: The visualized portion of the lung bases is unremarkable. Multiple gallstones are noted in the gallbladder. A stable small 1.1 cm adrenal nodule is again noted. An adrenal protocol MRI could be obtained for pr oper characterization of this lesion. The liver, spleen, pancreas and kidneys are normal in appearance. The abdominal aorta is mildly calcified, but is normal in caliber. The bowel gas pattern is non-obstructive. There is no free air. Scattered diverticula are seen associated with the colon. There is no CT evidence for acute diverticu litis. Bowel wall thickening with associated stranding of the mesenteric fat, previously seen associa jorden with the splenic flexure of the colon, has resolved. The small bowel is grossly unremarkable. The appendix is visualized and is normal in appearance. The bladder is within normal limits. The lower uterine segment of the uterus/cervix has a bulky heterogeneous appearance. Clinical correla tion is recommended to exclude pathology. No additional pelvic mass or fluid collection is noted. No enlarged lymph nodes, by CT criteria, are noted in the mesenteric, periaortic or deep pelvic regio ns. Degenerative changes are noted in the spine. No acute osseous abnormality is noted. Impression: 1. Scattered diverticula are seen associated with the colon. There is no CT evidence for acute divert iculitis. Bowel wall thickening with associated stranding of the mesenteric fat, previously seen asso ciated with the splenic flexure of the colon, has resolved. 2. Cholelithiasis. 3. A stable small 1.1 cm adrenal nodule is again noted. An adrenal protocol MRI could be obtained for proper characterization of this lesion. 4. The lower uterine segment of the uterus/cervix has a bulky heterogeneous appearance. Clinical nicolas elation is recommended to exclude pathology. Reported By:
== END ==
LOC: RAD 08:55
PROVIDERS: ATTEND Surgery
DX: R10.31 Right lower quadrant pain (principal); R10.32 Left lower quadrant pain; K80.80 Other cholelithiasis without obstruction
CPT/HCPCS: 74177; A4222